=== PATIENT | female | born 2000 | race American Indian/Alaskan Native ===

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

== ENCOUNTER 2018-11-29 09:27 | Emergency (ER) | payer MEDICAID, OTHER ==
[2018-11-29 09:35] VITALS: BP 144/77
--- NOTE | 2018-11-29 09:58 | Emergency Department Report ---
HPI - General Chief Complaint: Urogenital-Female Time Seen by Provider: 11/29/18 09:46 - HPI HPI: 17-year-old -[place] female presents to the emergency department with complaint of some lower abdominal pains and thinking that she is . She has not had a menstrual cycle since September and says that she has been having some intermittent lower abdominal pains since that time. She also complains of some vaginal discharge but denies any dysuria, fever, nausea or vomiting. She says that she took a home test that was negative. She does not have a primary care physician or [facility]. She has not taken anything for her symptoms p rior to arrival. ED Past Medical Hx - Past Medical History Previous Medical History?: Yes Additional medical history: acid reflux - Surgical History Past Surgical History?: No - Social History Smoking Status: Current Every Day Smoker Substance Use Type: Marijuana - Medications Home Medications: Home Medications Medication Instructions Recorded Confirmed Last Taken Type Docusate Sodium [Colace] 100 mg PO BID PRN #20 capsule 11/29/18 Unknown Rx Magnesium Citrate [Citrate of 300 ml PO NOW #1 bottle 11/29/18 Unknown Rx Magnesia] Nitrofurantoin Monohyd/M-Cryst 100 mg PO BID #14 capsule 11/29/18 Unknown Rx [Macrobid 100 mg Capsule] ED Review of Systems ROS: Stated complaint: TEST/ABD PAIN Other details as noted in HPI Comment: All other systems reviewed and negative Constitutional: denies: chills, fever Eyes: denies: eye pain, vision change ENT: denies: ear pain, throat pain Respiratory: denies: cough, shortness of breath Cardiovascular: denies: chest pain, palpitations Gastrointestinal: abdominal pain. denies: vomiting Genitourinary: discharge. denies: hematuria Musculoskeletal: denies: joint swelling, arthralgia Skin: denies: rash, lesions Neurological: denies: headache, weakness Physical Exam - Physical Exam Vital Signs: Vital Signs 11/29/18 09:30 Temperature 97.4 F L Pulse Rate 87 Respiratory 16 Rate Blood Pressure 144/77 O2 Sat by Pulse 100 Oximetry Physical Exam: GENERAL: The patient is well-developed well-nourished. HEENT: Normocephalic. Atraumatic. Patient has moist mucous membranes. EYES: Extraocular motions are intact. Pupils are equal and reactive to light bilaterally. NECK: Supple. Trachea is midline. CHEST/LUNGS: Clear to auscultation. There is no respiratory distress noted. HEART/CARDIOVASCULAR: Regular. There is no tachycardia. There is no obvious murmur. ABDOMEN: Abdomen is soft. Mild lower abdominal tenderness to palpation. No guarding.. Patient has normal bowel sounds. There is no abdominal distention. SKIN: Skin is warm and dry. NEURO: The patient is awake, alert, and oriented. The patient is cooperative. The patient has no focal neurologic deficits. The patient has normal speech. MUSCULOSKELETAL: There is no tenderness or deformity. There is no limitation range of motion. There is no evidence of acute injury. PELVIC: No labial or vaginal lesions seen. There is a small amount of discharge seen in the vaginal vault. ED Course Vital Signs 11/29/18 09:30 Temperature 97.4 F L Pulse Rate 87 Respiratory 16 Rate Blood Pressure 144/77 O2 Sat by Pulse 100 Oximetry - Reevaluation(s) Reevaluation #1: 11/29/18 15:36 The pelvic exam was done with nurse Benton at bedside. ED Medical Decision Making - Medical Decision Making This patient presents to the emergency department for concern of possible as she has missed her last menstrual cycle and is having some intermittent lower abdominal pains. Urine test was negative. Urinalysis was positive for a urinary tract infection. The labs were grossly unremarkable. Pelvic examination was done and wet prep was negative for BV and/or trichomoniasis. The patient was placed on antibiotics for her urinary tract infection. She was discharged home to follow up with primary care and [facility]. She will return to the ER with any worsening of her symptoms or any acute distress. Abdominal x-ray shows nonspecific nonicteric bowel gas pattern at least a moderate amount of stool volume. No signs of obstruction. She was placed on Colace and given a dose of magnesium citrate. - Differential Diagnosis , UTI, constipation, colitis Critical Care Time: No Critical care attestation.: If time is entered above; I have spent that time in minutes in the direct care of this critically ill patient, excluding procedure time. ED Disposition Clinical Impression: Increased stool volume, Missed period UTI (urinary tract infection) Qualifiers: Urinary tract infection type: acute cystitis Hematuria presence: without hematuria Qualified Code(s): N30.00 - Acute cystitis without hematuria Abdominal pain Qualifiers: Abdominal location: lower abdomen, unspecified Qualified Code(s): R10.30 - Lower abdominal pain, unspecified Disposition: TO HOME OR SELFCARE Is pt being admited?: No Condition: Stable Instructions: Constipation (ED), Urinary Tract Infection in Women (ED), Abdominal Pain (ED) Additional Instructions: Please follow-up with your primary care physician. Please follow-up with an [facility] regarding your missed and/or an abnormal menstrual cycle. Take the antibiotics as prescribed for your urinary tract infection. Return to the emergency Department with any worsening of your symptoms or any acute distress. Prescriptions: Magnesium Citrate [Citrate of Magnesia] 300 ml PO NOW #1 bottle Docusate Sodium [Colace] 100 mg PO BID PRN #20 capsule PRN Reason: Constipation Nitrofurantoin Monohyd/M-Cryst [Macrobid 100 mg Capsule] 100 mg PO BID #14 capsule Referrals: [facility] [Outside] - 3-5 Days [facility] [Provider Group] - 3-5 Days [facility] [Provider Group] - 3-5 Days Forms: Work/School Release Form(ED) Time of Disposition: 11:59
[2018-11-29 10:09] LABS: HCG Qualitative,Urine Negative (Negative)
[2018-11-29 10:25] LABS: Bilirubin,Urine NEG (Negative); Blood,Urine LG (Negative); Color,Urine Yellow (Yellow); Mucus,Urine FEW /HPF; Protein,Urine <15 mg/dL mg/dL (Negative); Urobilinogen,Urine < 2.0 mg/dL (<2.0)
[2018-11-29] MEDS ORDERED: MACROBID PO ONE (10:54)
--- NOTE | 2018-11-29 12:47 | XRay Report ---
PROCEDURE: XR ABDOMEN 2V TECHNIQUE: Upright and supine views of the abdomen HISTORY: abd pain COMPARISONS: None available FINDINGS: Bowel gas pattern is nonobstructive. There is moderate volume of stool in the colon. No abnormal calc ifications are seen. No focal osseous lesions. IMPRESSION: Moderate volume of stool seen in the colon. Nonobstructive bowel gas pattern. This document is electronically signed by Milagros Alarcon MD., November 29 2018 12:45:42 PM ET
== END 2018-11-29 12:13 | disposition home or self-care (01) ==
LOC: ED 09:27
DX: N39.0 Urinary tract infection, site not specified (principal); N92.6 Irregular menstruation, unspecified; R19.5 Other fecal abnormalities; F17.200 Nicotine dependence, unspecified, uncomplicated; F12.10 Cannabis abuse, uncomplicated
CPT/HCPCS: 74019; 81001; 81025; 87210; 87591

== ENCOUNTER 2020-02-11 09:25 | Emergency (ER) | payer SELFPAY ==
[2020-02-11 09:30] VITALS: BP 131/77
--- NOTE | 2020-02-11 10:56 | Event Note ---
ED Screening Note Date of service: 02/11/20 Time: 10:55 ED Screening Note: This 19-year-old female who presents the ED complaining of lower pelvic pain with some whitish discharge x1 week. She states last menstrual As end of December. This initial assessment/diagnostic orders/clinical plan/treatment(s) is/are subject to change based on patients health status, clinical progression and re- assessment by fellow clinical providers in the ED. Further treatment and workup at subsequent clinical providers discretion. Patient/guardian urged not to elope from the ED as their condition may be serious if not clinically assessed and managed. Initial orders include: ua, upt
[2020-02-11 11:57] LABS: Bacteria,Urine 1+ /HPF (Negative); Bilirubin,Urine NEG (Negative); Blood,Urine NEG (Negative); Color,Urine Yellow (Yellow); Mucus,Urine 2+ /HPF; Protein,Urine <15 mg/dL mg/dL (Negative)
[2020-02-11 12:03] LABS: HCG Qualitative,Urine Negative (Negative)
--- NOTE | 2020-02-11 12:51 | Emergency Department Report ---
ED Dysuria HPI - HPI Chief Complaint: Urogenital-Female Stated Complaint: POSS /STD Time Seen by Provider: 02/11/20 10:54 Duration: 4 Days Severity: Mild Symptoms: Dysuria: No, Frequency: Yes, Suprapubic Pain: Yes, Flank Pain: No, Fever: No, Hematuria: No, Abdominal Pain: No, Previous UTI's: No Other History: This 19-year-old female who presents the ED complaining of vaginal discharge worried about STD. Patient denies pelvic pain, abdominal pain, nausea vomiting or diarrhea. Patient did state that she was having mild suprapubic pain with some urinary frequency. ED Review of Systems ROS: Stated complaint: POSS /STD Other details as noted in HPI Comment: All other systems reviewed and negative ED Past Medical Hx - Past Medical History Previous Medical History?: Yes Additional medical history: acid reflux - Surgical History Past Surgical History?: No - Social History Smoking Status: Never Smoker Substance Use Type: None - Medications Home Medications: Home Medications Medication Instructions Recorded Confirmed Last Taken Type Docusate Sodium [Colace] 100 mg PO BID PRN #20 capsule 11/29/18 Unknown Rx Magnesium Citrate [Citrate of 300 ml PO NOW #1 bottle 11/29/18 Unknown Rx Magnesia] Nitrofurantoin Monohyd/M-Cryst 100 mg PO BID #14 capsule 11/29/18 Unknown Rx [Macrobid 100 mg Capsule] Nitrofurantoin [place]/M-Cryst 100 mg PO Q12HR #14 capsule 02/11/20 Unknown Rx [Macrobid CAP] Dysuria Exam - Exam General: Vital signs noted. No distress. Alert and acting appropriately. Exam: Yes Moist Mucous Membranes, No CVA Tenderness, No Abdominal Tenderness, No Rigidity or Guarding Labs: Lab Results 02/11/20 Range/Units Unknown Urine Color Yellow (Yellow) Urine Turbidity Cloudy (Clear) Urine pH 6.0 (5.0-7.0) Ur Specific [place] 1.018 (1.003-1.030) Urine Protein <15 mg/dl (Negative) mg/dL Urine Glucose (UA) Neg (Negative) mg/dL Urine Ketones Neg (Negative) mg/dL Urine Blood Neg (Negative) Urine Nitrite Neg (Negative) Urine Bilirubin Neg (Negative) Urine Urobilinogen 2.0 (<2.0) mg/dL Ur Leukocyte Esterase Mod (Negative) Urine WBC (Auto) 49.0 H (0.0-6.0) /HPF Urine RBC (Auto) 4.0 (0.0-6.0) /HPF U Epithel Cells (Auto) 14.0 H (0-13.0) /HPF Urine Bacteria (Auto) 1+ (Negative) /HPF Urine Mucus 2+ /HPF Urine HCG, Qual Negative (Negative) ED Course Vital Signs 02/11/20 09:26 Temperature 98.0 F Pulse Rate 97 H Respiratory 18 Rate Blood Pressure 131/77 O2 Sat by Pulse 100 Oximetry ED Medical Decision Making - Medical Decision Making This is a 19-year-old female presents with simple dysuria Discussed with patient and she is worried about STDs to follow-up with [facility] for STD testing. Urinalysis positive for leukocyte esterase and WBCs. test was negative We will treat with antibiotics. Discussed with patient to follow-up with [facility] as discussed. To complete antibiotic as prescribed. Vital signs are normal patient is in no acute distress patient understand instructions Critical care attestation.: If time is entered above; I have spent that time in minutes in the direct care of this critically ill patient, excluding procedure time. ED Disposition Clinical Impression: UTI (urinary tract infection) Disposition: DC-01 TO HOME OR SELFCARE Is pt being admited?: No Does the pt Need Aspirin: No Condition: Stable Instructions: Urinary Tract Infection in Women (ED) Additional Instructions: Make sure to follow up with the primary care physician as discussed. Take all your medications as you've been prescribed. Make sure you follow-up with health department or Dr. Ruiz for STD screening as discussed. If you have any worsening symptoms or develop new symptoms please return to ED immediately. Prescriptions: Nitrofurantoin [place]/M-Cryst [Macrobid CAP] 100 mg PO Q12HR #14 capsule Referrals: [facility] [Primary Care Provider] - 3-5 Days MELANIE LOMELI MD [Staff Physician] - 3-5 Days [facility] [Outside] - 3-[address] [facility] [Outside] - 3-5 Days [facility] [Outside] - 3-5 Days Forms: Work/School Release Form(ED) Time of Disposition: 12:56
== END 2020-02-11 13:10 | disposition home or self-care (01) ==
LOC: ED 09:25
DX: N39.0 Urinary tract infection, site not specified (principal); K21.9 Gastro-esophageal reflux disease without esophagitis; Z79.899 Other long term (current) drug therapy
CPT/HCPCS: 81001; 81025; 87086; 99283

== ENCOUNTER 2020-11-08 14:34 | Emergency (ER) | payer SELFPAY ==
--- NOTE | 2020-11-08 15:49 | Emergency Department Report ---
Upper Extremity - HPI Chief Complaint: Shoulder Injury Stated Complaint: RIGHT SHOULDER PAIN Time Seen by Provider: 11/08/20 15:48 Upper Extremity: Right Shoulder Occurred When: >5 Days (2 weeks) Symptoms: Yes Pain with Movement, No Deformity, No Limited Range of Movement, No Numbness, No Weakness, No Swelling, No Bruising/Ecchymosis, No Laceration or Abrasion Other History: 19 year old female presents to ED w/ c/o right shoulder pain. Onset 2 weeks ago. She states she woke up with the pain. She denies any injury. She does admits to strenous/repetitive activity at work. She states pain is worse with movement. She has not tried any thing for the pain. She denies any swelling, bruising, redness or any other symptoms. ED Review of Systems ROS: Stated complaint: RIGHT SHOULDER PAIN Other details as noted in HPI Comment: All other systems reviewed and negative Constitutional: no symptoms reported Eyes: denies: eye pain, eye discharge, vision change ENT: denies: ear pain, throat pain Respiratory: denies: cough, shortness of breath, wheezing Cardiovascular: denies: chest pain, palpitations, dyspnea on exertion, edema, syncope, paroxysmal nocturnal dyspnea Gastrointestinal: denies: abdominal pain, nausea, diarrhea Genitourinary: denies: urgency, dysuria, frequency, hematuria, discharge, abnormal menses, dyspareunia Musculoskeletal: arthralgia Skin: denies: rash, lesions Neurological: denies: headache, weakness, numbness, paresthesias, confusion, abnormal gait Psychiatric: denies: anxiety, depression ED Past Medical Hx - Past Medical History Previous Medical History?: No Additional medical history: acid reflux - Social History Smoking Status: Never Smoker Substance Use Type: None - Medications Home Medications: Home Medications Medication Instructions Recorded Confirmed Last Taken Type Docusate Sodium [Colace] 100 mg PO BID PRN #20 capsule 11/29/18 Unknown Rx Magnesium Citrate [Citrate of 300 ml PO NOW #1 bottle 11/29/18 Unknown Rx Magnesia] Nitrofurantoin Monohyd/M-Cryst 100 mg PO BID #14 capsule 11/29/18 Unknown Rx [Macrobid 100 mg Capsule] Nitrofurantoin [place]/M-Cryst 100 mg PO Q12HR #14 capsule 02/11/20 Unknown Rx [Macrobid CAP] Ibuprofen [Motrin] 800 mg PO Q8HR PRN #30 tablet 11/08/20 Unknown Rx Upper Extremity Exam - Exam General: Vital signs noted. No distress. Alert and acting appropriately. Head and Torso: No HEENT Abnormality, No Chest/Lungs Abnormality Shoulder Exam: Yes Shoulder Tenderness (right shoulder around AC joint), Yes Normal Range of Motion in Shoulder (but mildly painful), Yes AC Joint Tenderness (right ), No Shoulder Deformity Arm Exam: No Arm/Humerus Tenderness, No Arm Deformity Elbow: Yes Normal Range of Motion in Elbow, No Elbow Tenderness, No Elbow Deformity Forearm: No Forearm Tenderness, No Forearm Deformity, No Pain with Pronation, No Pain with Supination Wrist: Yes Normal ROM in Wrist, No Wrist Tenderness, No Wrist Deformity, No Snuffbox Tenderness, No Pain with Axial Thumb Compression Hand: Yes Normal ROM in Digit(s), No Hand Tenderness, No Hand Deformity, No Digit Tenderness, No Digit(s) Deformity, No Tendon Dysfunction CMS Exam: No Broken Skin, No Normal Distal Pulses, No Normal Capillary Refill, No Normal Distal Sensation Critical care attestation.: If time is entered above; I have spent that time in minutes in the direct care of this critically ill patient, excluding procedure time. ED Disposition Clinical Impression: Right shoulder strain Disposition: - TO HOME OR SELFCARE Is pt being admited?: No Does the pt Need Aspirin: No Condition: Stable Instructions: Shoulder Sprain Additional Instructions: Take medications as prescribed. Rest Shoulder for the next couple days. Follow up with [facility] especially if symptoms not better. Return to ED if symptoms changes or worsens in any way. Prescriptions: Ibuprofen [Motrin] 800 mg PO Q8HR PRN #30 tablet PRN Reason: Pain Referrals: MELANIE LOMELI MD [Staff Physician] - 3-5 Days OSEAS ELLIOTT MD [Staff Physician] - 3-5 Days Forms: Work/School Release Form(ED) Time of Disposition: 16:02
[2020-11-08 15:58] VITALS: BP 114/61
== END 2020-11-08 16:15 | disposition home or self-care (01) ==
LOC: ED 14:34
DX: S46.911A Strain of unspecified muscle, fascia and tendon at shoulder and upper arm level, right arm, initial encounter (principal); K21.9 Gastro-esophageal reflux disease without esophagitis; Z79.899 Other long term (current) drug therapy; X58.XXXA Exposure to other specified factors, initial encounter; Y93.89 Activity, other specified; Y92.89 Other specified places as the place of occurrence of the external cause; Y99.8 Other external cause status
CPT/HCPCS: 99281